=== PATIENT | male | born 1970 | race Caucasian/White ===

== ENCOUNTER 2018-12-09 10:57 | Inpatient (IN) | payer BC ==
[2018-12-09] MEDS ORDERED: 0.9 % SODIUM CHLORIDE 1,000 ML BAG IV ONE (11:17)
--- NOTE | 2018-12-09 11:17 | Emergency Department Record ---
History of Present Illness - General Chief complaint: Flu Like Symptoms Stated complaint: FLU Time Seen by Provider: 12/09/18 11:15 Source: Patient, RN notes reviewed Mode of Arrival: Wheelchair - History of Present Illness Initial comments: started with right shoulder pain 4 days ago and than body shakes and vomited times three and than coughing and congestion. Onset/Timin -: Days(s) Location: Generalized Severity: Moderate Severity scale (1-10): 4 Quality: Aching Consistency: Intermittent Improves with: Rest Worsens with: Exertion Associated Symptoms: Headaches, Myalgias - Related Data Home Medications Medication Instructions Recorded Confirmed Last Taken No Home Med [NO HOME MEDS] 12/09/18 12/09/18 Unknown Allergies Allergy/AdvReac Type Severity Reaction Status Date / Time No Known Allergies Allergy PT UNSURE Unverified 12/09/18 11:00 OF REACTION Travel Screening - Travel/Exposure Within Last 30 Days Have you traveled within the last 30 days?: No - Travel/Exposure Within Last Year Have you traveled outside the [place] in the last year?: No - Additonal Travel Details Have you been exposed to anyone with a communicable illness?: No - Travel Symptoms Symptom Screening: None Review of Systems Reviewed: No additional complaints except as noted below Constitutional: Reports: As per HPI. Denies: Chills, Fever, Malaise, Night sweats, Weakness, Weight change Eyes: Reports: As per HPI. Denies: Eye discharge, Eye pain, Photophobia, Vision change ENT: Reports: As per HPI, Congestion. Denies: Dental pain, Ear pain, Epistaxis , Hearing loss, Throat pain Respiratory: Reports: As per HPI, Cough. Denies: Dyspnea, Hemoptysis, Stridor, Wheezes Cardiovascular: Reports: As per HPI. Denies: Arrhythmia, Chest pain, Dyspnea on exertion, Edema, Murmurs, Orthopnea, Palpitations, Paroxysmal nocturnal dyspnea, Rheumatic Fever, Syncope Endocrine: Reports: As per HPI. Denies: Fatigue, Heat or cold intolerance, Polydipsia, Polyuria Gastrointestinal: Reports: As per HPI. Denies: Abdominal pain, Constipation, Diarrhea, Hematemesis, Hematochezia, Melena, Nausea, Vomiting Genitourinary: Reports: As per HPI. Denies: Dysuria, Frequency, Hematuria, Incontinence, Retention, Testicular pain, Testicular mass, Urgency Musculoskeletal: Reports: As per HPI, Myalgia. Denies: Arthralgia, Back pain, Gout, Joint swelling, Neck pain Skin: Reports: As per HPI. Denies: Bruising, Change in color, Change in hair/ nails, Lesions, Pruritus, Rash Neurological: Reports: As per HPI. Denies: Abnormal gait, Confusion, Headache, Numbness, Paresthesias, Seizure, Tingling, Tremors, Vertigo, Weakness Psychiatric: Reports: As per HPI. Denies: Anxiety, Auditory hallucinations, Depression, Homicidal thoughts, Suicidal thoughts, Visual hallucinations Hematological/Lymphatic: Reports: As per HPI. Denies: Anemia, Blood Clots, Easy bleeding, Easy bruising, Swollen glands Past Medical History - SOCIAL HISTORY Smoking Status: Never smoker Alcohol Use: None Drug Use: None - RESPIRATORY Hx Respiratory Disorders: No - CARDIOVASCULAR Hx Cardio Disorders: No - NEURO Hx Neuro Disorders: No - GI Hx GI Disorders: No - Hx Genitourinary Disorders: No - ENDOCRINE Hx Endocrine Disorders: No - MUSCULOSKELETAL Hx Musculoskeletal Disorders: No - PSYCH Hx Psych Problems: No - HEMATOLOGY/ONCOLOGY Hx Hematology/Oncology Disorders: No Family Medical History Any Significant Family History?: No Physical Exam - General General Appearance: Alert, Oriented x3, Cooperative, Moderate distress - Head Head exam: Normal inspection - Eye Eye exam: Normal appearance, PERRL Pupils: Normal accommodation - ENT ENT exam: Normal exam, Mucous membranes moist, Normal external ear exam, Normal orophraynx, TM's normal bilaterally Ear exam: Normal external inspection. negative: External canal tenderness Nasal Exam: Normal inspection. negative: Discharge, Sinus tenderness Mouth exam: Normal external inspection, Tongue normal Teeth exam: Normal inspection. negative: Dental caries Throat exam: Normal inspection. negative: Tonsillar erythema, Tonsillar exudate - Neck Neck exam: Normal inspection, Full ROM. negative: Tenderness - Respiratory Respiratory exam: Normal lung sounds bilaterally, Decreased breath sounds ( right lower lob), Rhonchi. negative: Respiratory distress - Cardiovascular Cardiovascular Exam: Regular rate, Normal rhythm, Normal heart sounds - GI/Abdominal GI/Abdominal exam: Soft, Normal bowel sounds. negative: Tenderness - Rectal Rectal exam: Deferred - exam: Deferred - Extremities Extremities exam: Normal inspection, Full ROM, Normal capillary refill. negative: Tenderness - Back Back exam: Reports: Normal inspection, Full ROM. Denies: Muscle spasm, Rash noted, Tenderness - Neurological Neurological exam: Alert, Normal gait, Oriented X3, Reflexes normal - Psychiatric Psychiatric exam: Normal affect, Normal mood - Skin Skin exam: Dry, Intact, Normal color, Warm Course Vital Signs 12/09/18 11:01 Temperature 99.8 F H Pulse Rate 105 H Respiratory 20 Rate Blood Pressure 128/70 Pulse Ox 88 L - Reevaluation(s) Reevaluation #1: discussed case with Dr Watkins and will admit to [facility] 12/09/18 12:19 Medical Decision Making - Data Complexity MDM Data: Labs Ordered and/or Reviewed (wbc 12,700), X-Ray Ordered and/or Reviewed (right lower lobe infiltate lobar type ) - Lab Data Result diagrams: 12/09/18 11:35 12/09/18 11:35 Disposition Clinical Impression: Hypoxia Pneumonia Qualifiers: Pneumonia type: due to unspecified organism Laterality: right Lung location: lower lobe of lung Qualified Code(s): J18.1 - Lobar pneumonia, unspecified organism Decision to Admit: Admit from ER Condition: (2) Stable Instructions: Pneumonia (ED) Forms: Patient Portal Access Time of Disposition: 12:21 Quality - Quality Measures Quality Measures: N/A - Blood Pressure Screening Does Patient Have Any of the Following: No Blood Pressure Classification: Pre-Hypertensive BP Reading Systolic Measurement: 128 Diastolic Measurement: 70 Screening for High Blood Pressure: < Pre-Hypertensive BP, F/U Documented > [ [id number]] Pre-Hypertensive Follow-up Interventions: Referral to alternative/primary care provider.
[2018-12-09 11:43] LABS: HEMATOCRIT 38.7 % (42.0-52.0); HEMOGLOBIN 13.3 gm/dl (14.0-18.0); MEAN CELL VOLUME 87.4 fl (81-97); MEAN CORPUSCULAR HGB CONC 34.4 g/dl (32-36); PLATELET COUNT 190 K/uL (130-400); RED BLOOD COUNT 4.43 M/uL (4.40-5.70); RED CELL DISTRIBUTION WIDTH 11.8 % (11.5-14.5); WHITE BLOOD COUNT W/O DIFF 12.7 K/uL (4.2-12.2)
[2018-12-09 11:51] LABS: BLOOD UREA NITROGEN 10 mg/dL (6-20)
[2018-12-09 11:52] LABS: INFLUENZA A NEGATIVE (NEGATIVE); INFLUENZA B NEGATIVE (NEGATIVE)
[2018-12-09 11:52] LABS: CREATININE 0.9 mg/dL (0.7-1.2); EST GLOMERULAR FILTRATION RATE > 60 mL/min
[2018-12-09 11:54] LABS: GLUCOSE,RANDOM 150 mg/dL (74-109)
[2018-12-09] MEDS ORDERED: CEFTRIAXONE SODIUM 2 GM in 0.9 % SODIUM CHLORIDE 100ML 100 ML IVPB ONE (12:06)
[2018-12-09] MEDS ORDERED: AZITHROMYCIN 500 MG TABLET PO ONE (12:06)
[2018-12-09] MEDS ORDERED: SODIUM CHLORIDE IV PRN (13:25)
[2018-12-09] MEDS: ACETAMINOPHEN 325 MG TAB PO PRN ×2 (14:44→22:28)
--- NOTE | 2018-12-09 15:26 | History & Physical ---
History of Present Illness - Date of Service Date of Service for History & Physical: 12/09/18 - History of Present Illness Admitting Diagnosis: pneumonia right lower lobe History of Present Illness: Mr. Perales is a 48 y/o male who presents after having weakness, chills and a fever starting on Friday. The patient says his symptoms improved and then he developed a cough and mild shortness of breath over the past 3 days. He says that he thought he had the flu so he tried to just drink plenty of fluids but he did not take any medications. He has not traveled recently and has not had any sick contacts. The patient says that he went to an urgent care in [facility] this morning and was told that he had to come into the ED. On arrival to the ED the patient was noted to be febrile with a temperature of 99, tachycardic, HR 105, and saturating at 88% on room air. Chest xray showed a consolidation of the right lower lung lobe and labs showed hyponatremia. The patient is admitted for community acquired pneumonia causing hypoxia, and dehydration. The patient is not a smoker and has no other medical conditions. PCP: No PCP Travel Screening - Travel/Exposure Within Last 30 Days Have you traveled within the last 30 days?: No - Travel/Exposure Within Last Year Have you traveled outside the [place] in the last year?: No - Additonal Travel Details Have you been exposed to anyone with a communicable illness?: No - Travel Symptoms Symptom Screening: None Review of Systems Constitutional: Reports: As per HPI. Denies: Chills, Fever, Malaise, Night sweats, Weakness, Weight change Eyes: Reports: As per HPI. Denies: Eye discharge, Eye pain, Photophobia, Vision change ENT: Reports: As per HPI, Congestion. Denies: Dental pain, Ear pain, Epistaxis , Hearing loss, Throat pain Respiratory: Reports: As per HPI, Cough, Dyspnea. Denies: Hemoptysis, Stridor, Wheezes Cardiovascular: Reports: As per HPI. Denies: Arrhythmia, Chest pain, Dyspnea on exertion, Edema, Murmurs, Orthopnea, Palpitations, Paroxysmal nocturnal dyspnea, Rheumatic Fever, Syncope Endocrine: Reports: As per HPI. Denies: Fatigue, Heat or cold intolerance, Polydipsia, Polyuria Gastrointestinal: Reports: As per HPI. Denies: Abdominal pain, Constipation, Diarrhea, Hematemesis, Hematochezia, Melena, Nausea, Vomiting Genitourinary: Reports: As per HPI. Denies: Dysuria, Frequency, Hematuria, Incontinence, Retention, Testicular pain, Testicular mass, Urgency Musculoskeletal: Reports: As per HPI, Myalgia. Denies: Arthralgia, Back pain, Gout, Joint swelling, Neck pain Skin: Reports: As per HPI. Denies: Bruising, Change in color, Change in hair/ nails, Lesions, Pruritus, Rash Neurological: Reports: As per HPI. Denies: Abnormal gait, Confusion, Headache, Numbness, Paresthesias, Seizure, Tingling, Tremors, Vertigo, Weakness Psychiatric: Reports: As per HPI. Denies: Anxiety, Auditory hallucinations, Depression, Homicidal thoughts, Suicidal thoughts, Visual hallucinations Hematological/Lymphatic: Reports: As per HPI. Denies: Anemia, Blood Clots, Easy bleeding, Easy bruising, Swollen glands Past Medical History - SOCIAL HISTORY Smoking Status: Never smoker Alcohol Use: None Drug Use: None - RESPIRATORY Hx Respiratory Disorders: No - CARDIOVASCULAR Hx Cardio Disorders: No - NEURO Hx Neuro Disorders: No - GI Hx GI Disorders: No - Hx Genitourinary Disorders: No - ENDOCRINE Hx Endocrine Disorders: No - MUSCULOSKELETAL Hx Musculoskeletal Disorders: No - PSYCH Hx Psych Problems: No - HEMATOLOGY/ONCOLOGY Hx Hematology/Oncology Disorders: No Family Medical History Any Significant Family History?: No H&P Meds/Allergies - Allergies Allergies: Allergies Allergy/AdvReac Type Severity Reaction Status Date / Time No Known Allergies Allergy PT UNSURE Unverified 12/09/18 11:00 OF REACTION - Home Medications Home Medications Medication Instructions Recorded Confirmed Last Taken No Home Med [NO HOME MEDS] 12/09/18 12/09/18 Unknown - Active Medications Active Medications: Current Medications Acetaminophen (Tylenol 325mg) 650 mg PO Q6H PRN PRN Reason: PAIN - MILD(1-4)/FEVER Last Admin: 12/09/18 14:44 Dose: 650 mg Azithromycin (Zithromax) 500 mg PO DAILY MELAV Enoxaparin Sodium (Lovenox) 40 mg SC DAILY MELVA Sodium Chloride () 4,000 mls @ 125 mls/hr IV .Q24H PRN PRN Reason: LARGE VOLUME IV CEFTRIAXONE 1GM/50ML BAG (Ceftriaxone 1 Gm-D5w Bag) 1 gm in 50 mls @ 100 mls/ hr IVPB Q12H MELVA Physical Exam - Vital Signs Vital Signs: Vital Signs - Last 24 Hrs Temp Pulse Pulse Resp BP BP Pulse Ox 12/09/18 14:00 101.9 F H 101 H 20 117/71 93 L 12/09/18 13:30 96 H 20 124/71 94 L 12/09/18 11:01 99.8 F H 105 H 20 128/70 88 L - General General Appearance: Alert, Oriented x3, Cooperative, Moderate distress - Head Head exam: Normal inspection - Eye Eye exam: Normal appearance, PERRL Pupils: Normal accommodation - ENT ENT exam: Normal exam, Mucous membranes moist, Normal external ear exam, Normal orophraynx, TM's normal bilaterally Ear exam: Normal external inspection. negative: External canal tenderness Nasal Exam: Normal inspection. negative: Discharge, Sinus tenderness Mouth exam: Normal external inspection, Tongue normal Teeth exam: Normal inspection. negative: Dental caries Throat exam: Normal inspection. negative: Tonsillar erythema, Tonsillar exudate - Neck Neck exam: Normal inspection, Full ROM. negative: Tenderness - Respiratory Respiratory exam: Normal lung sounds bilaterally, Decreased breath sounds ( right lower lob), Rhonchi. negative: Respiratory distress, Wheezes - Cardiovascular Cardiovascular Exam: Regular rate, Normal rhythm, Normal heart sounds Peripheral Pulses: 3+: Radial (R), Radial (L), Dorsalis Pedis (R), Dorsalis Pedis (L) - GI/Abdominal GI/Abdominal exam: Soft, Normal bowel sounds. negative: Tenderness - Rectal Rectal exam: Deferred - exam: Deferred - Extremities Extremities exam: Normal inspection, Full ROM, Normal capillary refill. negative: Tenderness - Back Back exam: Reports: Normal inspection, Full ROM. Denies: Muscle spasm, Rash noted, Tenderness - Neurological Neurological exam: Alert, Normal gait, Oriented X3, Reflexes normal - Psychiatric Psychiatric exam: Normal affect, Normal mood - Skin Skin exam: Dry, Intact, Normal color, Warm Results - Labs Result Diagrams: 12/09/18 11:35 12/09/18 11:35 Labs Last 24 Hours: Laboratory Results - last 24 hr 12/09/18 12/09/18 12/09/18 11:10 11:35 11:35 WBC 12.7 H RBC 4.43 Hgb 13.3 L Hct 38.7 L MCV 87.4 MCH 30.0 MCHC 34.4 RDW 11.8 Plt Count 190 MPV 10.0 Neutrophils % 81.0 H Band Neutrophils % 7.0 H Eosinophils % Not Reportable Basophils % Not Reportable Lymphocytes 2.0 L Monocytes 10.0 H Sodium 127 L Potassium 3.6 Chloride 88 L Carbon Dioxide 28.0 Anion Gap 11.0 BUN 10 Creatinine 0.9 Estimated GFR > 60 Random Glucose 150 H Calcium 9.4 Influenza Type A Ag Negative Influenza Type B Ag Negative Group A Strep Screen 12/09/18 12:05 WBC RBC Hgb Hct MCV MCH MCHC RDW Plt Count MPV Neutrophils % Band Neutrophils % Eosinophils % Basophils % Lymphocytes Monocytes Sodium Potassium Chloride Carbon Dioxide Anion Gap BUN Creatinine Estimated GFR Random Glucose Calcium Influenza Type A Ag Influenza Type B Ag Group A Strep Screen Negative VTE H&P Assessment - Risk for VTE Risk for VTE: Yes Risk Level: High Risk Assessment Date: 12/09/18 Risk Assessment Time: 15:28 VTE Orders Placed or Will Be Placed: Yes Plan - Inpatient Certification Inpatient Certification: Admit to inpatient care: Based on my medical assessment, after consideration of patient's risk factors (age, co-morbidities and patient presenting symptoms and acuity), I expect that this patient will remain in the hospital greater than or equal to two midnights and that the services needed warrant inpatient care because: Patient Risk Factors: CAP Estimated length of stay: 3 days The patient may reasonably be expected to be discharged or transferred to a hospital within 96 hours after admission to [facility]. I certify that my determination is in accordance with my understanding of Medicare requirements for reasonable and necessary inpatient services. 12/09/18 15:28 - Detailed Diagnosis and Plan (1) CAP (community acquired pneumonia) Current Visit: Yes Status: Acute Base Code: J18.9 - PNEUMONIA, UNSPECIFIED ORGANISM Comment: 12/09/18: - CXR: right lower lung lobve consolidation, WBC 12K - Febrile, hypoxemia, productive cough. - Azitrhromycin 500mg PO, QD, Rocephin 1gm Q12H, Tylenol 500mg Q6H PRN for fever. - Sputum cultures, Blood cultures pending. Influenza rapid A/B negative. (2) Hypoxia Current Visit: Yes Status: Acute Base Code: R09.02 - HYPOXEMIA Comment: 12/09/18: - 88% at RA on admission. - Oxygen to maintain saturations > 92%. Currently on 2 liters nasal cannula. (3) Hyponatremia Current Visit: Yes Status: Acute Base Code: E87.1 - HYPO-OSMOLALITY AND HYPONATREMIA Comment: 12/09/18: - Na 127 - Likely due to dehydration. - Replete with Nacl 0.9% @ 125mL/hr. - Check BMP in the morning. (4) DVT prophylaxis Current Visit: Yes Status: Acute Base Code: [id number] - Comment: 12/09/18: - Lovenox 40mg subq QD (5) Full code status Current Visit: Yes Status: Acute Base Code: Z78.9 - OTHER SPECIFIED HEALTH STATUS Comment: 12/09/18: - Full code status.
[2018-12-09] MEDS: 0.9 % SODIUM CHLORIDE 1000ML 1,000 ML IV PRN (18:47)
[2018-12-09] MEDS: CEFTRIAXONE 1GM/50ML BAG 1 GM/50 ML BAG IVPB SCH (22:06)
[2018-12-10] MEDS: 0.9 % SODIUM CHLORIDE 1000ML 1,000 ML IV PRN ×3 (03:16→20:40)
[2018-12-10] MEDS: ACETAMINOPHEN 325 MG TAB PO PRN ×2 (06:26→15:12)
[2018-12-10 06:48] LABS: BASO % 0.1 % (0-6); EOS % 0.4 % (0-6); HEMOGLOBIN 12.5 gm/dl (14.0-18.0); LYMPH % 4.7 % (16-45); MEAN CELL VOLUME 88.7 fl (81-97); MEAN CORPUSCULAR HGB CONC 33.8 g/dl (32-36); MEAN PLATELET VOLUME 9.8 fl (7.4-10.4); MONO % 8.7 % (0-9); PLATELET COUNT 215 K/uL (130-400); RED BLOOD COUNT 4.17 M/uL (4.40-5.70); RED CELL DISTRIBUTION WIDTH 12.2 % (11.5-14.5); WHITE BLOOD COUNT W/O DIFF 13.5 K/uL (4.2-12.2)
[2018-12-10 06:52] LABS: MEAN CORPUSCULAR HEMOGLOBIN 29.9 pg (27-33)
[2018-12-10 07:11] LABS: BLOOD UREA NITROGEN 9 mg/dL (6-20); CREATININE 0.8 mg/dL (0.7-1.2); EST GLOMERULAR FILTRATION RATE > 60 mL/min; GLUCOSE,RANDOM 122 mg/dL (74-109)
--- NOTE | 2018-12-10 07:22 | RADIOLOGY REPORT ---
EXAM: CHEST, TWO VIEWS HISTORY: FEVER, COUGH, CONGESTION. TECHNIQUE: Two views of the chest were obtained. Comparison: None. FINDINGS: The cardiac silhouette is within normal size limits. Large area of dense consolidation in the anterior right lower lobe. No significant pleural fluid collection. No additional focal opacities. No pneumothorax. IMPRESSION: LARGE DENSE CONSOLIDATION IN THE RIGHT LOWER LOBE SUGGESTING PNEUMONIA. RECOMMEND FOLLOW-UP IMAGING UNTIL RESOLUTION. JOB NUMBER: [id number] MTDD
--- NOTE | 2018-12-10 08:49 | Physician Progress Note ---
Subjective - Date Date of Physician Progress Note: 12/10/18 - Subjective Subjective Comment: The patient is awake and has no new complaint this morning. He says that he is regaining his appetite and is feeling a little better that yesterday. Objective - Vital Signs Vital Signs: Vital Signs - Last 24 Hrs Temp Pulse Pulse Resp BP BP Pulse Ox 12/10/18 07:35 92 H 20 135/80 96 12/10/18 06:00 101.3 F H 101 H 18 109/68 92 L 12/10/18 02:00 97.2 F L 89 20 109/62 92 L 12/09/18 23:49 99.6 F 12/09/18 22:29 100.4 F H 12/09/18 22:10 0 L 20 12/09/18 22:00 99.3 F 102 H 20 101/59 93 L 12/09/18 17:55 93 H 16 92 L 12/09/18 17:17 99.0 F 95 H 20 120/63 95 12/09/18 14:00 101.9 F H 101 H 20 117/71 93 L 12/09/18 13:30 96 H 20 124/71 94 L 12/09/18 11:01 99.8 F H 105 H 20 128/70 88 L - General General Appearance: Alert, Oriented x3, Cooperative, Moderate distress - Head Head exam: Normal inspection - Eye Eye exam: Normal appearance, PERRL Pupils: Normal accommodation - ENT ENT exam: Normal exam, Mucous membranes moist, Normal external ear exam, Normal orophraynx, TM's normal bilaterally Ear exam: Normal external inspection. negative: External canal tenderness Nasal Exam: Normal inspection. negative: Discharge, Sinus tenderness Mouth exam: Normal external inspection, Tongue normal Teeth exam: Normal inspection. negative: Dental caries Throat exam: Normal inspection. negative: Tonsillar erythema, Tonsillar exudate - Neck Neck exam: Normal inspection, Full ROM. negative: Tenderness - Respiratory Respiratory exam: Normal lung sounds bilaterally, Decreased breath sounds ( right lower lob), Rhonchi. negative: Respiratory distress, Wheezes - Cardiovascular Cardiovascular Exam: Regular rate, Normal rhythm, Normal heart sounds Peripheral Pulses: 3+: Radial (R), Radial (L), Dorsalis Pedis (R), Dorsalis Pedis (L) - GI/Abdominal GI/Abdominal exam: Soft, Normal bowel sounds. negative: Tenderness - Rectal Rectal exam: Deferred - exam: Deferred - Extremities Extremities exam: Normal inspection, Full ROM, Normal capillary refill. negative: Tenderness - Back Back exam: Reports: Normal inspection, Full ROM. Denies: Muscle spasm, Rash noted, Tenderness - Neurological Neurological exam: Alert, Normal gait, Oriented X3, Reflexes normal - Psychiatric Psychiatric exam: Normal affect, Normal mood - Skin Skin exam: Dry, Intact, Normal color, Warm Assessment and Plan - Assessment and Plan (1) CAP (community acquired pneumonia) Current Visit: Yes Status: Acute Base Code: J18.9 - PNEUMONIA, UNSPECIFIED ORGANISM Comment: 12/10/18: - CXR: right lower lung lobve consolidation, WBC 12K -->13k - Febrile @ 101 deg this morning. - Azitrhromycin 500mg PO, QD, Rocephin 1gm Q12H, Tylenol 500mg Q6H PRN for fever. - Sputum cultures, Blood cultures pending. Influenza rapid and PCR confirms negative. (2) Hypoxia Current Visit: Yes Status: Acute Base Code: R09.02 - HYPOXEMIA Comment: 12/10/18: - 88% at RA on admission. - Maintaining sats > 92% on 2 liters nasal cannula oxygen. (3) Hyponatremia Current Visit: Yes Status: Acute Base Code: E87.1 - HYPO-OSMOLALITY AND HYPONATREMIA Comment: 12/10/18: - Na 127--> 137 resolved. - Likely due to dehydration. - Replete with Nacl 0.9% @ 125mL/hr. - Check BMP in the morning. (4) DVT prophylaxis Current Visit: Yes Status: Acute Base Code: [id number] - Comment: 12/10/18: - Lovenox 40mg subq QD (5) Full code status Current Visit: Yes Status: Acute Base Code: Z78.9 - OTHER SPECIFIED HEALTH STATUS Comment: 12/10/18: - Full code status. Results - Labs Result Diagrams: 12/10/18 06:34 12/10/18 06:34 Labs Last 24 Hours: Laboratory Results - last 24 hr 12/09/18 12/09/18 12/09/18 11:10 11:35 11:35 WBC 12.7 H RBC 4.43 Hgb 13.3 L Hct 38.7 L MCV 87.4 MCH 30.0 MCHC 34.4 RDW 11.8 Plt Count 190 MPV 10.0 Neutrophils % 81.0 H Band Neutrophils % 7.0 H Lymphocytes % Monocytes % Eosinophils % Not Reportable Basophils % Not Reportable Lymphocytes 2.0 L Monocytes 10.0 H Eosinophil Count Sodium 127 L Potassium 3.6 Chloride 88 L Carbon Dioxide 28.0 Anion Gap 11.0 BUN 10 Creatinine 0.9 Estimated GFR > 60 Random Glucose 150 H Calcium 9.4 Specimen Type Nasal Influenza A PCR Nasal Influenza B PCR Influenza Type A Ag Negative Influenza Type B Ag Negative Group A Strep Screen 12/09/18 12/09/18 12/10/18 12:05 15:45 06:34 WBC 13.5 H RBC 4.17 L Hgb 12.5 L Hct 37.0 L MCV 88.7 MCH 29.9 MCHC 33.8 RDW 12.2 Plt Count 215 MPV 9.8 Neutrophils % 89.0 H Band Neutrophils % Lymphocytes % 4.7 L Monocytes % 8.7 Eosinophils % 0.4 Basophils % 0.1 Lymphocytes 5.0 L Monocytes 5.0 Eosinophil Count 1.0 Sodium Potassium Chloride Carbon Dioxide Anion Gap BUN Creatinine Estimated GFR Random Glucose Calcium Specimen Type Nasopharyngeal Nasal Influenza A PCR Not detected Nasal Influenza B PCR Not detected Influenza Type A Ag Influenza Type B Ag Group A Strep Screen Negative 12/10/18 06:34 WBC RBC Hgb Hct MCV MCH MCHC RDW Plt Count MPV Neutrophils % Band Neutrophils % Lymphocytes % Monocytes % Eosinophils % Basophils % Lymphocytes Monocytes Eosinophil Count Sodium 137 Potassium 3.4 Chloride 96 L Carbon Dioxide 28.0 Anion Gap 13.0 BUN 9 Creatinine 0.8 Estimated GFR > 60 Random Glucose 122 H Calcium 8.6 Specimen Type Nasal Influenza A PCR Nasal Influenza B PCR Influenza Type A Ag Influenza Type B Ag Group A Strep Screen DVT/PE Assessment - Risk for VTE Risk for VTE: No Risk Level: High Risk Assessment Date: 12/09/18 Risk Assessment Time: 15:28 VTE Orders Placed or Will Be Placed: Yes - Active Medicaitons Current Medications: Current Medications Acetaminophen (Tylenol 325mg) 650 mg PO Q6H PRN PRN Reason: PAIN - MILD(1-4)/FEVER Last Admin: 12/10/18 06:26 Dose: 650 mg Azithromycin (Zithromax) 500 mg PO DAILY [facility] Enoxaparin Sodium (Lovenox) 40 mg SC DAILY MELVA CEFTRIAXONE 1GM/50ML BAG (Ceftriaxone 1 Gm-D5w Bag) 1 gm in 50 mls @ 100 mls/ hr IVPB Q12H MELVA Last Infusion: 12/10/18 00:45 Dose: Infused Sodium Chloride () 1,000 mls @ 125 mls/hr IV .Q8H PRN PRN Reason: LARGE VOLUME IV Last Admin: 12/10/18 03:16 Dose: 125 mls/hr AMI Plan - Labs Result Diagrams: 12/10/18 06:34 12/10/18 06:34
[2018-12-10] MEDS: AZITHROMYCIN 500 MG TABLET PO SCH (09:54)
[2018-12-10] MEDS: ENOXAPARIN 40 MG/0.4 ML SYR SC SCH (09:54)
[2018-12-10] MEDS: CEFTRIAXONE 1GM/50ML BAG 1 GM/50 ML BAG IVPB SCH ×2 (10:16→21:51)
[2018-12-10] MEDS ORDERED: DIPHENHYDRAMINE HCL 25 MG CAPSULE PO PRN (20:14)
[2018-12-11] MEDS: 0.9 % SODIUM CHLORIDE 1000ML 1,000 ML IV PRN (06:28)
[2018-12-11 06:46] LABS: HEMATOCRIT 31.1 % (42.0-52.0); HEMOGLOBIN 10.3 gm/dl (14.0-18.0); MEAN CELL VOLUME 89.6 fl (81-97); MEAN CORPUSCULAR HGB CONC 33.1 g/dl (32-36); MEAN PLATELET VOLUME 9.3 fl (7.4-10.4); PLATELET COUNT 208 K/uL (130-400); RED BLOOD COUNT 3.47 M/uL (4.40-5.70); RED CELL DISTRIBUTION WIDTH 12.5 % (11.5-14.5); WHITE BLOOD COUNT W/O DIFF 10.4 K/uL (4.2-12.2)
[2018-12-11 06:55] LABS: MEAN CORPUSCULAR HEMOGLOBIN 29.6 pg (27-33)
[2018-12-11 07:23] LABS: PLATELET ESTIMATE NORMAL (NORMAL)
--- NOTE | 2018-12-11 09:27 | Discharge Summary ---
Providers Discharge Summary Date: 12/11/18 Date of admission: 12/09/18 13:14 Attending physician: JUAN ALBERTO YOUNGBLOOD Physical Exam - Vital Signs Vital Signs: Vital Signs - Last 24 Hrs Temp Pulse Pulse Resp BP Pulse Ox 12/11/18 06:00 99.6 F 87 18 101/68 93 L 12/11/18 00:30 99.5 F 99 H 20 119/62 93 L 12/10/18 22:00 100.0 F H 94 H 18 107/55 94 L 12/10/18 20:05 18 12/10/18 15:00 100.0 F H 99 H 18 118/64 94 L 12/10/18 14:22 105 H 20 95 12/10/18 13:45 98.2 F 12/10/18 10:25 88 18 99 12/10/18 10:00 98.0 F 86 18 105/60 100 - General General Appearance: Alert, Oriented x3, Cooperative, Moderate distress - Head Head exam: Normal inspection - Eye Eye exam: Normal appearance, PERRL Pupils: Normal accommodation - ENT ENT exam: Normal exam, Mucous membranes moist, Normal external ear exam, Normal orophraynx, TM's normal bilaterally Ear exam: Normal external inspection. negative: External canal tenderness Nasal Exam: Normal inspection. negative: Discharge, Sinus tenderness Mouth exam: Normal external inspection, Tongue normal Teeth exam: Normal inspection. negative: Dental caries Throat exam: Normal inspection. negative: Tonsillar erythema, Tonsillar exudate - Neck Neck exam: Normal inspection, Full ROM. negative: Tenderness - Respiratory Respiratory exam: Normal lung sounds bilaterally, Decreased breath sounds ( right lower lob), Rhonchi. negative: Respiratory distress, Wheezes - Cardiovascular Cardiovascular Exam: Regular rate, Normal rhythm, Normal heart sounds Peripheral Pulses: 3+: Radial (R), Radial (L), Dorsalis Pedis (R), Dorsalis Pedis (L) - GI/Abdominal GI/Abdominal exam: Soft, Normal bowel sounds. negative: Tenderness - Rectal Rectal exam: Deferred - exam: Deferred - Extremities Extremities exam: Normal inspection, Full ROM, Normal capillary refill. negative: Tenderness - Back Back exam: Reports: Normal inspection, Full ROM. Denies: Muscle spasm, Rash noted, Tenderness - Neurological Neurological exam: Alert, Normal gait, Oriented X3, Reflexes normal - Psychiatric Psychiatric exam: Normal affect, Normal mood - Skin Skin exam: Dry, Intact, Normal color, Warm Hospitalization - Hospitalization Admission Diagnosis: pneumonia right lower lobe - Problem List/Discharge Diagnosis (1) CAP (community acquired pneumonia) Current Visit: Yes Status: Acute Base Code: J18.9 - PNEUMONIA, UNSPECIFIED ORGANISM Comment: 12/11/18: - CXR: right lower lung lobve consolidation, WBC 12K -->13k - Afebrile, saturating > 95% on RA - Azitrhromycin 500mg PO, QD, Rocephin 1gm Q12H D/C change to Cefdinir 300mg BID at discharge. - Sputum cultures, Blood cultures still not reported at discharge. Influenza rapid and PCR confirms negative. (2) Hypoxia Current Visit: Yes Status: Acute Base Code: R09.02 - HYPOXEMIA Comment: 12/11/18: Resolved - 88% at RA on admission. - Maintaining sats > 95% RA (3) DVT prophylaxis Current Visit: Yes Status: Acute Base Code: [id number] - Comment: 12/11/18: - Lovenox 40mg subq QD (4) Full code status Current Visit: Yes Status: Acute Base Code: Z78.9 - OTHER SPECIFIED HEALTH STATUS Comment: 12/11/18: - Full code status. - Hospitalization Course Hospital Course: Mr. Perales is a 48 y/o male who presents after having weakness, chills and a fever starting on Friday. The patient says his symptoms improved and then he developed a cough and mild shortness of breath over the past 3 days. He says that he thought he had the flu so he tried to just drink plenty of fluids but he did not take any medications. He has not traveled recently and has not had any sick contacts. The patient says that he went to an urgent care in [facility] this morning and was told that he had to come into the ED. On arrival to the ED the patient was noted to be febrile with a temperature of 99, tachycardic, HR 105, and saturating at 88% on room air. Chest xray showed a consolidation of the right lower lung lobe and labs showed hyponatremia. The patient is admitted for community acquired pneumonia causing hypoxia, and dehydration. The patient is not a smoker and has no other medical conditions. 12/10/18: The patient was able to maintain saturations on 2 liters nasal cannula but still had a fever and complaint of lethargy and feeling fatigued. He also had diminished appetite and has only been taking liquids for the past 24 hours. White count trended up marginally to 13K and Na corrected with fluids. 12/11/18: Symptoms have improved remarkably and the patient is up out of bed this morning and eating breakfast. WBCs trended down to 10K and electrolytes are within normal limits. The patient is scheduled to follow in the [facility] next week. He will be changed to oral antibiotics at discharge and to be off work until after appointment next week. PCP: No PCP Procedures: Imaging and X-Rays 12/09/18 11:17 CHEST 2 VIEWS [RAD] Stat Abnormal Labs: Abnormal Lab Results 12/09/18 12/09/18 12/10/18 Range/Units 11:35 11:35 06:34 WBC 12.7 H 13.5 H (4.2-12.2) K/uL RBC 4.17 L (4.40-5.70) M/uL Hgb 13.3 L 12.5 L (14.0-18.0) gm/dl Hct 38.7 L 37.0 L (42.0-52.0) % Neutrophils % 81.0 H 89.0 H (47-80) % Band Neutrophils % 7.0 H (0-5) % Lymphocytes % 4.7 L (16-45) % Lymphocytes 2.0 L 5.0 L (16-45) % Monocytes 10.0 H (0-9) % Sodium 127 L (136-145) mmol/L Chloride 88 L (98-107) mmol/L Random Glucose 150 H (74-109) mg/dL 12/10/18 12/11/18 Range/Units 06:34 06:38 WBC (4.2-12.2) K/uL RBC 3.47 L (4.40-5.70) M/uL Hgb 10.3 L (14.0-18.0) gm/dl Hct 31.1 L (42.0-52.0) % Neutrophils % (47-80) % Band Neutrophils % 11.0 H (0-5) % Lymphocytes % (16-45) % Lymphocytes 9.0 L (16-45) % Monocytes 13.0 H (0-9) % Sodium (136-145) mmol/L Chloride 96 L (98-107) mmol/L Random Glucose 122 H (74-109) mg/dL Condition at Discharge: (2) Stable Discharge Medications - Discharge Medications Prescriptions: Azithromycin [Zithromax] 500 mg PO DAILY 5 Days #5 tab Cefdinir [Omnicef] 300 mg PO BID #10 cap Home Medications: Ambulatory Orders Azithromycin [Zithromax] 500 mg PO DAILY 5 Days #5 tab 12/11/18 [Last Taken Unknown] Cefdinir [Omnicef] 300 mg PO BID #10 cap 12/11/18 [Last Taken Unknown] Discharge Plan - Discharge Instructions Activity at Discharge: Return To Work Once Cleared By Your PCP/Specialist Diet at Discharge: Regular Diet Instructions: Pneumonia (ED) Additional Instructions: Medications to be taken for the next 5 days: Zithromax 500mg, 1 tab daily. Cefdinir 300mg 1 tab, twice daily. Please keep your appt with the [facility] next week. You have been provided with a work letter for return to work after your appointment. The provider you see will determine if you require additional days off if required. Quality Measures - Quality Measures Quality Measures: Documentation of Current Medications in Medical Record, Screening for High Blood Pressure and F/U Documented - Current Medications Quality Measure: Measure #130: Documentation of Current Medications Documentation of Current Medications: <Current Medications Documented/Reviewed> [G8427] - Blood Pressure Screening Quality Measure: Screening for High Blood Pressure and Follow-Up Documented Does Patient Have Any of the Following: No Blood Pressure Classification: Pre-Hypertensive BP Reading Systolic Measurement: 124 Diastolic Measurement: 71 Screening for High Blood Pressure: < Pre-Hypertensive BP, F/U Documented > [ [id number]] Pre-Hypertensive Follow-up Interventions: Follow-up with rescreen every year., Lifestyle modifications. Lifestyle Modification: Dietary Approaches to Stop Hypertension (DASH) Eating Plan, Dietary Sodium Restriction - Elder Abuse Suspicion Index EASI Reference Information: Luis M BOLES, Ovidio C, Matthew D, Amena Norton.Development and validation of a tool to assist physicians identification of elder abuse: The Elder Abuse Suspicion Index (EASI ). Journal of Elder Abuse and Neglect, 2008; 20 (3): 276-300.
[2018-12-11] MEDS: AZITHROMYCIN 500 MG TABLET PO SCH (09:44)
[2018-12-11] MEDS: ENOXAPARIN 40 MG/0.4 ML SYR SC SCH (09:47)
[2018-12-11] MEDS: CEFTRIAXONE 1GM/50ML BAG 1 GM/50 ML BAG IVPB SCH (10:07)
== END 2018-12-11 11:30 | disposition home or self-care (01) | DRG 194 ==
LOC: ER 10:57 → MEDSURG 13:14
PROVIDERS: ADMIT Internal Medicine; ATTEND Internal Medicine
DX: J18.9 Pneumonia, unspecified organism (principal); E87.1 Hypo-osmolality and hyponatremia; R50.9 Fever, unspecified; R09.02 Hypoxemia; E86.0 Dehydration; R11.10 Vomiting, unspecified
CPT/HCPCS: 71046; 80048; 85027; 87070; 87400; 87880; 94760; 94761; 96365; 99223; 99233; 99239; 99285; J0696; J1650